=== PATIENT | male | born 1970 | race Caucasian/White ===

== ENCOUNTER 2020-02-04 08:34 | Inpatient (IN) | payer BC ==
[~2020-02-04] VITALS: Ht 177.8 cm; Wt 110.7 kg
--- NOTE | 2020-02-04 00:26 | NUR ---
NURSE NOTES: Completed EKG tracing and showed normal sinus rhythm, cannot rule out anterior infarct. Patient is asymptomatic, alert and oriented x4, breathing even and unlabored, pain is now at a level zero after pain medication administration, vital signs are stable. Notified Dr. Lofton regarding EKG results. Addendum: 02/05/20 at 0047 by Dawn Reyes RN Wrong date, should be 25 - 02/05/2020
--- NOTE | 2020-02-04 08:35 | NUR ---
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 patient reports he had his back against the wall and he felt shortness of breath and lost consciousness and fell down. patient sustained lip/oral trauma and abrasion to his left frontal head, c/o pain 3/10 on lower lip and frontal head. upon arrival patient is alert awake x4 ambulatory, breathing unlabored and even, speaking in full sentences, patient denies having SOB at the moment. patient placed on a hospital gown, placed on a custodian manager.
[2020-02-04 08:45] VITALS: BP 112/71
[2020-02-04] MEDS ORDERED: LOSARTAN POTASS25 MG ORAL (08:55)
[2020-02-04] MEDS ORDERED: AVAPRO300 MG ORAL (08:55)
[2020-02-04] MEDS ORDERED: LYRICA75 M1 ORAL (08:55)
[2020-02-04] MEDS ORDERED: FOLIC ACID1 MG ORAL (08:55)
[2020-02-04] MEDS ORDERED: CELEXA20 MG ORAL (08:55)
[2020-02-04] MEDS ORDERED: CYMBALTA60 MG ORAL (08:55)
[2020-02-04] MEDS ORDERED: ASPIRIN81 MG ORAL (08:55)
[2020-02-04] MEDS ORDERED: PAMELOR25 MG ORAL (08:55)
[2020-02-04] MEDS ORDERED: PANTOPRAZOLE SO40 MG ORAL (08:55)
[2020-02-04] MEDS ORDERED: ATORVASTATIN CA40 MG ORAL (08:55)
--- NOTE | 2020-02-04 09:03 | Emergency Room Report ---
History of Present Illness General Chief Complaint: Syncope Source: Patient, EMS Present Illness HPI Patient is a 49-year-old male presents after syncopal episode. 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 He subsequently fell down striking his face. Does not recall any events or any promontory symptoms. Denies any prior history of heart failure. States he did not eat breakfast this morning. He had prior history of recent negative stress treadmill test. Denies any recent fever. Reports some pain to face and head. Had been squatting before loss of consciousness and had been moving medium weight material prior to stopping. Allergies: Coded Allergies: No Known Allergies (Unverified , 02/04/20) COVID-19 Screening Contact w/high risk pt: No Recent Travel to affected area: No Experienced COVID-19 symptoms?: No COVID-19 Testing performed ONLINE AFFILIATE MARKETING MANAGER: No Patient History Past Medical History: see triage record Past Surgical History: none Pertinent Family History: none Reviewed Nursing Documentation: PMH: Agreed; PSxH: Agreed Nursing Documentation-PMH Past Medical History: No History, Except For Hx Hypertension: Yes Hx Gastrointestinal Problems: Yes - GERD History Of Psychiatric Problem: Yes - Depression Review of Systems All Other Systems: negative except mentioned in HPI Physical Exam Vital Signs Date Time Temp Pulse Resp B/P (MAP) Pulse Ox O2 Delivery O2 Flow Rate FiO2 02/04/20 08:29 97.5 108 18 108/65 (79) 100 Room Air Sp02 EP Interpretation: reviewed, normal General Appearance: normal inspection, alert, obese Head: other - forehead swelling, facial abrasion. ENT: hearing grossly normal, other Neck: normal inspection, full range of motion, supple, no bony tend Respiratory: normal inspection, lungs clear, normal breath sounds, no respiratory distress, no retraction, no wheezing Cardiovascular #1: regular rate, rhythm, no edema Gastrointestinal: normal inspection, normal bowel sounds, non tender, soft, no guarding, no hernia Genitourinary: no CVA tenderness Musculoskeletal: normal inspection, back normal, normal range of motion Neurologic: alert, oriented x3, responsive, speech normal, normal inspection Psychiatric: normal inspection, judgement/insight normal, mood/affect normal Skin: other - abrasions to face Medical Decision Making Diagnostic Impression: Primary Impression: Syncope Additional Impressions: Facial laceration Head contusion ER Course Patient presented for syncopal episode. Differential diagnosis include was not limited to anemia, arrhythmia, myocardial infarction, seizure among others. Because of complexity of patient's case laboratory tests and imaging studies were ordered. Ct head showed no intracranial pathology, CT facial bones showed no evident fracture. Tavo Huff was contacted for plastic surgery consult and repaired facial laceration. He recommended peridex and antibiotics. Ekg showed normal sinus rhythm with no acute st or Twave changes. Facial abrasions were cleansed by tech. Rapid Covid testing was negative. Dr. Nichols was contacted for inpatient management due to panel physician. Labs Test 02/04/20 08:45 White Blood Count 9.2 K/UL (4.8-10.8) Red Blood Count 5.24 M/UL (4.70-6.10) Hemoglobin 16.5 G/DL (14.2-18.0) Hematocrit 48.7 % (42.0-52.0) Mean Corpuscular Volume 93 FL (80-99) Mean Corpuscular Hemoglobin 31.5 PG (27.0-31.0) Mean Corpuscular Hemoglobin Concent 33.9 G/DL (32.0-36.0) Red Cell Distribution Width 10.8 % (11.6-14.8) Platelet Count 280 K/UL (150-450) Mean Platelet Volume 7.4 FL (6.5-10.1) Neutrophils (%) (Auto) 54.5 % (45.0-75.0) Lymphocytes (%) (Auto) 33.5 % (20.0-45.0) Monocytes (%) (Auto) 7.6 % (1.0-10.0) Eosinophils (%) (Auto) 3.0 % (0.0-3.0) Basophils (%) (Auto) 1.4 % (0.0-2.0) Prothrombin Time 10.8 SEC (9.30-11.50) Prothromb Time International Ratio 1.0 (0.9-1.1) Activated Partial Thromboplast Time 26 SEC (23-33) D-Dimer 0.23 mg/L FEU (0.00-0.49) Sodium Level 140 MMOL/L (136-145) Potassium Level 4.0 MMOL/L (3.5-5.1) Chloride Level 103 MMOL/L (98-107) Carbon Dioxide Level 22 MMOL/L (21-32) Anion Gap 15 mmol/L (5-15) Blood Urea Nitrogen 12 mg/dL (7-18) Creatinine 1.7 MG/DL (0.55-1.30) Estimat Glomerular Filtration Rate 42.9 mL/min (>60) Glucose Level 104 MG/DL (74-106) Calcium Level 8.8 MG/DL (8.5-10.1) Total Bilirubin 0.5 MG/DL (0.2-1.0) Aspartate Amino Transf (AST/SGOT) 23 U/L (15-37) Alanine Aminotransferase (ALT/SGPT) 45 U/L (12-78) Alkaline Phosphatase 58 U/L (46-116) Troponin I 0.000 ng/mL (0.000-0.056) C-Reactive Protein, Quantitative 0.7 mg/dL (0.00-0.90) Pro-B-Type Natriuretic Peptide 7 pg/mL (0-125) Total Protein 7.1 G/DL (6.4-8.2) Albumin 3.9 G/DL (3.4-5.0) Globulin 3.2 g/dL Albumin/Globulin Ratio 1.2 (1.0-2.7) Lipase 210 U/L (73-393) EKG Diagnostic Results Rate: normal - 95 Rhythm: NSR ST Segments: no acute changes Last Vital Signs Date Time Temp Pulse Resp B/P (MAP) Pulse Ox O2 Delivery O2 Flow Rate FiO2 02/04/20 08:45 98.0 94 14 112/71 96 Room Air Status: improved Disposition: ADMITTED INPATIENT Condition: Stable Adam Byers MD Feb 04, 2020 09:03
[2020-02-04 09:12] LABS: BASOPHILS % (AUTO) 1.4 % (0.0-2.0); HEMATOCRIT 48.7 % (42.0-52.0); HEMOGLOBIN 16.5 G/DL (14.2-18.0); LYMPHOCYTES % (AUTO) 33.5 % (20.0-45.0); MEAN CORPUSCULAR VOLUME 93 FL (80-99); MONOCYTES % (AUTO) 7.6 % (1.0-10.0); NEUTROPHILS % (AUTO) 54.5 % (45.0-75.0); PLATELET COUNT 280 K/UL (150-450); RED BLOOD COUNT 5.24 M/UL (4.70-6.10); RED CELL DISTRIBUTION WIDTH 10.8 % (11.6-14.8); WHITE BLOOD COUNT 9.2 K/UL (4.8-10.8)
[2020-02-04] MEDS ORDERED: Tetanus/Diptheria/Pertussis IM ONE (09:15)
[2020-02-04 09:19] LABS: ANION GAP 15 mmol/L (5-15); BLOOD UREA NITROGEN 12 mg/dL (7-18); CALCIUM 8.8 MG/DL (8.5-10.1); CARBON DIOXIDE 22 MMOL/L (21-32); CHLORIDE 103 MMOL/L (98-107); CREATININE 1.7 MG/DL (0.55-1.30); SODIUM 140 MMOL/L (136-145)
--- NOTE | 2020-02-04 09:26 | NUR ---
ED Nurse Note: patient taken to CT scan.
[2020-02-04 09:29] LABS: ALANINE AMINOTRANSFERASE 45 U/L (12-78); ALBUMIN 3.9 G/DL (3.4-5.0); ALBUMIN/GLOBULIN RATIO 1.2 (1.0-2.7); ALKALINE PHOSPHATASE 58 U/L (46-116); ASPARTATE AMINO TRANSFERASE 23 U/L (15-37); BILIRUBIN,TOTAL 0.5 MG/DL (0.2-1.0)
--- NOTE | 2020-02-04 09:35 | NUR ---
ED Nurse Note: patient came back from CT
--- NOTE | 2020-02-04 10:19 | Diagnostic Imaging Report ---
Indications: Head trauma Technique: Spiral acquisitions obtained through the brain. Angled axial and coronal 5 x 5 mm slices were reconstructed. Total dose length product 1072 mGycm. CTDI vol(s) 53 mGy. Dose reduction achieved using automated exposure control Comparison: None. Findings: No acute intracranial hemorrhage or edema. No mass effect nor midline shift. Normal valentine-white differentiation. Normal size ventricles and extra-axial CSF spaces. Intact calvarium. Visualized orbits and sinuses are unremarkable. The mastoids are clear. Impression: Negative The CT scanner at [facility] is accredited by the [employer] and the scans are performed using protocols designed to limit radiation exposure to as low as reasonably achievable to attain images of sufficient resolution adequate for diagnostic evaluation.
[2020-02-04] MEDS ORDERED: Lidocaine 2% 20mg/ml/EPI 0.01mg/ml 20ml ONE (11:28)
[2020-02-04] MEDS ORDERED: Lidocaine 1% 10mg/ml/EPI 0.01mg/ml 30ml INJ ONE (11:30)
--- NOTE | 2020-02-04 11:31 | NUR ---
ED Nurse Note: Dr. Refugio Vaughn came for lip laceration repair, gave verbal order for lidocaine 1% with epi. RN verified the bottle of the medication with Dr. Huff.
[2020-02-04] MEDS ORDERED: cefTRIAXone 1 GM in NS 55 ML IVPB ONE (12:00)
[2020-02-04] MEDS ORDERED: Lidocaine HCl 2% Jelly 6ml Tube TOPIC ONE (12:15)
[2020-02-04 12:59] VITALS: BP 120/74
[2020-02-04] MEDS ORDERED: Morphine Sulfate 2mg/ml Inj(IV/IM USE ONLY) IVP ONE (13:00)
--- NOTE | 2020-02-04 13:42 | NUR ---
ED Nurse Note: report given to Brett RN, endorsed all plan of care to Brett RN.
--- NOTE | 2020-02-04 13:42 | Diagnostic Imaging Report ---
Indications: Pain from fall, trauma Technique: Spiral images obtained through the facial bones. No IV contrast utilized. Multiplanar reconstructions were generated.Total dose length product 470 mGycm. CTDIvol(s) 15 mGy. Dose reduction achieved using automated exposure control Comparison: none Findings: No acute fractures. No worrisome sinus air-fluid levels. No dislocations. Nasal septum is midline. The optic globes are intact. There is evidence of prior resection of a portion of the medial maxillary sinus sal bilaterally as well as of the middle turbinates. There is minimal focal mucosal thickening in the right maxillary sinus and within the left sphenoid sinus.. There is also minimal mucosal disease within a few ethmoid air cells. The deep facial soft tissues are unremarkable. The visualized upper aerodigestive tract is unremarkable. The dentition is intact. There is periosteal thickening of the left side of the mandible, predominantly on the inner table but also the outer table which is presumably developmental in nature. 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
--- NOTE | 2020-02-04 13:46 | Consultation ---
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 patient reports he had his back against the wall and he felt shortness of breath and lost consciousness and fell down. Recent stress test nuclear 2 months ago with PCP in [place] was negative Allergies: Coded Allergies: No Known Allergies (Unverified , 02/04/20) Medication History Scheduled Aspirin* (Aspirin*), 70 MG ORAL DAILY, (Reported) Atorvastatin Calcium* (Atorvastatin Calcium*), 40 MG ORAL BEDTIME, (Reported) Citalopram Hydrobromide* (Celexa*), 20 MG ORAL DAILY, (Reported) Duloxetine Hcl* (Cymbalta*), 60 MG ORAL DAILY, (Reported) Folic Acid* (Folic Acid*), 1 MG ORAL DAILY, (Reported) Irbesartan* (Avapro*), 300 MG ORAL DAILY, (Reported) Losartan Potassium* (Losartan Potassium*), 25 MG ORAL DAILY, (Reported) Nortriptyline Hcl* (Pamelor*), 25 MG ORAL DAILY, (Reported) Pantoprazole* (Pantoprazole*), 40 MG ORAL DAILY, (Reported) Pregabalin* (Lyrica*), 100 MG ORAL THREE TIMES A DAY, (Reported) Patient History Healthcare decision maker Resuscitation status Advanced Directive on File No Review of Systems All Other Systems: negative except mentioned in HPI Physical Exam General Appearance: WD/WN, no apparent distress, alert Lines, tubes and drains: peripheral HEENT: normocephalic, atraumatic Neck: non-tender, normal alignment Respiratory/Chest: chest wall non-tender, lungs clear Cardiovascular/Chest: normal peripheral pulses, normal rate, regular rhythm Abdomen: normal bowel sounds, non tender, soft Neurologic: alert, oriented x 3 Last 24 Hour Vital Signs Date Time Temp Pulse Resp B/P (MAP) Pulse Ox O2 Delivery O2 Flow Rate FiO2 02/04/20 13:43 98.0 02/04/20 12:59 98.0 02/04/20 12:59 98.0 89 17 120/74 95 Room Air 02/04/20 08:45 98.0 94 14 112/71 96 Room Air 02/04/20 08:29 97.5 108 18 108/65 (79) 100 Room Air Laboratory Tests Test 7/6/20 08:45 White Blood Count 9.2 K/UL (4.8-10.8) Red Blood Count 5.24 M/UL (4.70-6.10) Hemoglobin 16.5 G/DL (14.2-18.0) Hematocrit 48.7 % (42.0-52.0) Mean Corpuscular Volume 93 FL (80-99) Mean Corpuscular Hemoglobin 31.5 PG (27.0-31.0) H Mean Corpuscular Hemoglobin Concent 33.9 G/DL (32.0-36.0) Red Cell Distribution Width 10.8 % (11.6-14.8) L Platelet Count 280 K/UL (150-450) Mean Platelet Volume 7.4 FL (6.5-10.1) Neutrophils (%) (Auto) 54.5 % (45.0-75.0) Lymphocytes (%) (Auto) 33.5 % (20.0-45.0) Monocytes (%) (Auto) 7.6 % (1.0-10.0) Eosinophils (%) (Auto) 3.0 % (0.0-3.0) Basophils (%) (Auto) 1.4 % (0.0-2.0) Prothrombin Time 10.8 SEC (9.30-11.50) Prothromb Time International Ratio 1.0 (0.9-1.1) Activated Partial Thromboplast Time 26 SEC (23-33) D-Dimer 0.23 mg/L FEU (0.00-0.49) Sodium Level 140 MMOL/L (136-145) Potassium Level 4.0 MMOL/L (3.5-5.1) Chloride Level 103 MMOL/L (98-107) Carbon Dioxide Level 22 MMOL/L (21-32) Anion Gap 15 mmol/L (5-15) Blood Urea Nitrogen 12 mg/dL (7-18) Creatinine 1.7 MG/DL (0.55-1.30) H Estimat Glomerular Filtration Rate 42.9 mL/min (>60) Glucose Level 104 MG/DL (74-106) Calcium Level 8.8 MG/DL (8.5-10.1) Total Bilirubin 0.5 MG/DL (0.2-1.0) Aspartate Amino Transf (AST/SGOT) 23 U/L (15-37) Alanine Aminotransferase (ALT/SGPT) 45 U/L (12-78) Alkaline Phosphatase 58 U/L (46-116) Troponin I 0.000 ng/mL (0.000-0.056) C-Reactive Protein, Quantitative 0.7 mg/dL (0.00-0.90) Pro-B-Type Natriuretic Peptide 7 pg/mL (0-125) Total Protein 7.1 G/DL (6.4-8.2) Albumin 3.9 G/DL (3.4-5.0) Globulin 3.2 g/dL Albumin/Globulin Ratio 1.2 (1.0-2.7) Lipase 210 U/L (73-393) Microbiology Date/Time Source Procedure Growth Status 02/04/20 09:00 Nasopharynx SARS-CoV-2 RdRp Gene Assay - Final Complete Height (Feet): 5 Height (Inches): 10.00 Weight (Pounds): 235 Assessment/Plan Diagnosis [place]: #DAVID #syncope #s/p fall #Facial laceration - IVF - monitor renal function - urine lytes - renal us - cardiology eval - monitor BMP, mag and phos daily - avoid nephrotoxins - strict I&Os - monitor weights Keisha Nichols M.D. Feb 04, 2020 13:46
--- NOTE | 2020-02-04 14:00 | NUR ---
ED Nurse Note: patient transferred to on ACLS protocol with all of his belongings, report given to Ani RN, endorsed all plan of to Ani RN. patient in stable condition, a/o x4 ambulatory steady gait.
--- NOTE | 2020-02-04 14:00 | NUR ---
NURSE NOTES: Patient received from Philly MELÉNDEZ RN. Patient stable AOx4 with complaints of 6/10 to jaw. VSS. No s/sx of distress. RR even and unlabored on RA. Placed on fall precautions. Laceration to head noted. Due to pain, could not fully assess inside of mouth. SR on wire brusher. Side rails upx2, call light within reach, bed llow and locked, bed alarm on. Will continue to monitor.
[2020-02-04] MEDS ORDERED: HYDROcodone/Acetamin 10/325 tab ORAL PRN (14:30)
[2020-02-04] MEDS: HYDROcodone/Acetamin 5/325 tab ORAL PRN ×2 (14:44→23:16)
--- NOTE | 2020-02-04 16:05 | Diagnostic Imaging Report ---
Indication: Shortness of breath Technique: One view of the chest Comparison: none Findings: Lungs and pleural spaces are clear. Heart size is normal. Hardware is seen in the lower cervical spine Impression: No acute process
[2020-02-04 16:18] VITALS: BP 123/84
--- NOTE | 2020-02-04 17:44 | Consultation ---
History of Present Illness General Chief Complaint: Syncope Present Illness Allergies: Coded Allergies: No Known Allergies (Unverified , 02/04/20) Medication History Scheduled Aspirin* (Aspirin*), 70 MG ORAL DAILY, (Reported) Atorvastatin Calcium* (Atorvastatin Calcium*), 40 MG ORAL BEDTIME, (Reported) Citalopram Hydrobromide* (Celexa*), 20 MG ORAL DAILY, (Reported) Duloxetine Hcl* (Cymbalta*), 60 MG ORAL DAILY, (Reported) Folic Acid* (Folic Acid*), 1 MG ORAL DAILY, (Reported) Irbesartan* (Avapro*), 300 MG ORAL DAILY, (Reported) Losartan Potassium* (Losartan Potassium*), 25 MG ORAL DAILY, (Reported) Nortriptyline Hcl* (Pamelor*), 25 MG ORAL DAILY, (Reported) Pantoprazole* (Pantoprazole*), 40 MG ORAL DAILY, (Reported) Pregabalin* (Lyrica*), 100 MG ORAL THREE TIMES A DAY, (Reported) Patient History Healthcare decision maker Resuscitation status Advanced Directive on File No Physical Exam Last 24 Hour Vital Signs Date Time Temp Pulse Resp B/P (MAP) Pulse Ox O2 Delivery O2 Flow Rate FiO2 02/04/20 16:18 98.4 85 16 123/84 (97) 97 02/04/20 16:00 78 02/04/20 15:58 Room Air 02/04/20 14:00 98.0 89 17 120/74 95 Room Air 02/04/20 13:43 98.0 02/04/20 12:59 98.0 02/04/20 12:59 98.0 89 17 120/74 95 Room Air 02/04/20 08:45 98.0 94 14 112/71 96 Room Air 02/04/20 08:29 97.5 108 18 108/65 (79) 100 Room Air Laboratory Tests Test 02/04/20 08:45 White Blood Count 9.2 K/UL (4.8-10.8) Red Blood Count 5.24 M/UL (4.70-6.10) Hemoglobin 16.5 G/DL (14.2-18.0) Hematocrit 48.7 % (42.0-52.0) Mean Corpuscular Volume 93 FL (80-99) Mean Corpuscular Hemoglobin 31.5 PG (27.0-31.0) H Mean Corpuscular Hemoglobin Concent 33.9 G/DL (32.0-36.0) Red Cell Distribution Width 10.8 % (11.6-14.8) L Platelet Count 280 K/UL (150-450) Mean Platelet Volume 7.4 FL (6.5-10.1) Neutrophils (%) (Auto) 54.5 % (45.0-75.0) Lymphocytes (%) (Auto) 33.5 % (20.0-45.0) Monocytes (%) (Auto) 7.6 % (1.0-10.0) Eosinophils (%) (Auto) 3.0 % (0.0-3.0) Basophils (%) (Auto) 1.4 % (0.0-2.0) Prothrombin Time 10.8 SEC (9.30-11.50) Prothromb Time International Ratio 1.0 (0.9-1.1) Activated Partial Thromboplast Time 26 SEC (23-33) D-Dimer 0.23 mg/L FEU (0.00-0.49) Sodium Level 140 MMOL/L (136-145) Potassium Level 4.0 MMOL/L (3.5-5.1) Chloride Level 103 MMOL/L (98-107) Carbon Dioxide Level 22 MMOL/L (21-32) Anion Gap 15 mmol/L (5-15) Blood Urea Nitrogen 12 mg/dL (7-18) Creatinine 1.7 MG/DL (0.55-1.30) H Estimat Glomerular Filtration Rate 42.9 mL/min (>60) Glucose Level 104 MG/DL (74-106) Calcium Level 8.8 MG/DL (8.5-10.1) Total Bilirubin 0.5 MG/DL (0.2-1.0) Aspartate Amino Transf (AST/SGOT) 23 U/L (15-37) Alanine Aminotransferase (ALT/SGPT) 45 U/L (12-78) Alkaline Phosphatase 58 U/L (46-116) Troponin I 0.000 ng/mL (0.000-0.056) C-Reactive Protein, Quantitative 0.7 mg/dL (0.00-0.90) Pro-B-Type Natriuretic Peptide 7 pg/mL (0-125) Total Protein 7.1 G/DL (6.4-8.2) Albumin 3.9 G/DL (3.4-5.0) Globulin 3.2 g/dL Albumin/Globulin Ratio 1.2 (1.0-2.7) Lipase 210 U/L (73-393) Microbiology Date/Time Source Procedure Growth Status 02/04/20 09:00 Nasopharynx SARS-CoV-2 RdRp Gene Assay - Final Complete Height (Feet): 5 Height (Inches): 10.00 Weight (Pounds): 244 Medications Current Medications Medications (Trade) Dose Ordered Sig/Delmis Route PRN Reason Start Time Stop Time Status Last Admin Dose Admin Acetaminophen (Tylenol) 650 mg Q6H PRN ORAL For mild pain 02/04/20 14:30 03/05/20 14:29 Acetaminophen/ Hydrocodone Bitart (Solomon 10/325) 1 tab Q6H PRN ORAL For Severe Pain 02/04/20 14:30 02/11/20 14:29 Acetaminophen/ Hydrocodone Bitart (Solomon 5/325) 1 tab Q6H PRN ORAL For Moderate Pain 02/04/20 14:30 02/11/20 14:29 02/04/20 14:44 Alex Lofton MD Feb 04, 2020 17:44
--- NOTE | 2020-02-04 18:00 | Diagnostic Imaging Report ---
Indication: Syncope Technique: Grayscale and duplex images of the extracranial carotid artery Comparison: none Findings: Per technologist, exam technically difficult, due to the depth of the vessels. Bilaterally, grayscale and duplex images demonstrate atherosclerotic plaquing resulting in less than 50% diameter narrowing. Normal Doppler flow velocities and waveforms. Patent bilateral vertebral arteries, antegrade flow. Impression: Less than 50% diameter stenosis bilaterally
[2020-02-04] MEDS ORDERED: HydrALAZINE 25mg tab ORAL PRN (18:30)
--- NOTE | 2020-02-04 19:15 | NUR ---
HAND-OFF: Report given to Dawn GARCÍA. Patient stable. Plan of care endorsed.
--- NOTE | 2020-02-04 19:15 | NUR ---
NURSE NOTES: Hand-off report received by RICKY Desai. Patient in stable condition, no acute signs of distress noted. Patient on room air, breathing is unlabored, lungs clear to auscultation. Alert and oriented x4. Call light within reach, bed alarm activated, bed in lowest and locked position, court recording monitor in place.
[2020-02-04 20:00] VITALS: BP 117/84
[2020-02-04] MEDS: Lyrica 50mg cap ORAL SCH (20:43)
[2020-02-04] MEDS ORDERED: DULoxetine 30mg cap ORAL SCH (21:00)
[2020-02-04] MEDS ORDERED: Atorvastatin 20mg tab ORAL SCH (21:00)
[2020-02-04] MEDS ORDERED: Nortriptyline 25mg cap ORAL SCH (21:00)
--- NOTE | 2020-02-04 22:31 | History & Physical ---
Mitchell Finn MD Feb 04, 2020 22:31
--- NOTE | 2020-02-04 22:53 | Consultation ---
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 patient reports he had his back against the wall and he felt shortness of breath and lost consciousness and fell down. Recent stress test nuclear 2 months ago with PCP in [place] was negative Allergies: Coded Allergies: No Known Allergies (Unverified , 02/04/20) Medication History Scheduled Aspirin* (Aspirin*), 70 MG ORAL DAILY, (Reported) Atorvastatin Calcium* (Atorvastatin Calcium*), 40 MG ORAL BEDTIME, (Reported) Citalopram Hydrobromide* (Celexa*), 20 MG ORAL DAILY, (Reported) Duloxetine Hcl* (Cymbalta*), 60 MG ORAL DAILY, (Reported) Folic Acid* (Folic Acid*), 1 MG ORAL DAILY, (Reported) Irbesartan* (Avapro*), 300 MG ORAL DAILY, (Reported) Losartan Potassium* (Losartan Potassium*), 25 MG ORAL DAILY, (Reported) Nortriptyline Hcl* (Pamelor*), 25 MG ORAL DAILY, (Reported) Pantoprazole* (Pantoprazole*), 40 MG ORAL DAILY, (Reported) Pregabalin* (Lyrica*), 100 MG ORAL THREE TIMES A DAY, (Reported) Patient History Healthcare decision maker Resuscitation status Advanced Directive on File No Review of Systems Constitutional: Reports: no symptoms Eye: Reports: no symptoms ENT: Reports: no symptoms Respiratory: Reports: no symptoms Cardiovascular: Reports: no symptoms Gastrointestinal: Reports: no symptoms Genitourinary: Reports: no symptoms Musculoskeletal: Reports: no symptoms Skin: Reports: no symptoms Psychiatric: Reports: no symptoms Neurological: Reports: syncope Endocrine: Reports: no symptoms Hematologic/Lymphatic: Reports: no symptoms Physical Exam General Appearance: no apparent distress, alert Lines, tubes and drains: peripheral HEENT: normocephalic, atraumatic Neck: non-tender, normal alignment, supple, normal inspection Respiratory/Chest: chest wall non-tender, lungs clear, normal breath sounds, no respiratory distress, no accessory muscle use Cardiovascular/Chest: normal peripheral pulses, normal rate, regular rhythm Abdomen: normal bowel sounds, non tender, soft, no organomegaly, no mass Extremities: normal range of motion, non-tender, normal inspection, no calf tenderness Last 24 Hour Vital Signs Date Time Temp Pulse Resp B/P (MAP) Pulse Ox O2 Delivery O2 Flow Rate FiO2 02/04/20 20:00 97.9 79 18 117/84 (95) 94 02/04/20 20:00 79 02/04/20 16:18 98.4 85 16 123/84 (97) 97 02/04/20 16:00 78 02/04/20 15:58 Room Air 02/04/20 14:00 98.0 89 17 120/74 95 Room Air 02/04/20 13:43 98.0 02/04/20 12:59 98.0 02/04/20 12:59 98.0 89 17 120/74 95 Room Air 02/04/20 08:45 98.0 94 14 112/71 96 Room Air 02/04/20 08:29 97.5 108 18 108/65 (79) 100 Room Air Laboratory Tests Test 02/04/20 08:45 White Blood Count 9.2 K/UL (4.8-10.8) Red Blood Count 5.24 M/UL (4.70-6.10) Hemoglobin 16.5 G/DL (14.2-18.0) Hematocrit 48.7 % (42.0-52.0) Mean Corpuscular Volume 93 FL (80-99) Mean Corpuscular Hemoglobin 31.5 PG (27.0-31.0) H Mean Corpuscular Hemoglobin Concent 33.9 G/DL (32.0-36.0) Red Cell Distribution Width 10.8 % (11.6-14.8) L Platelet Count 280 K/UL (150-450) Mean Platelet Volume 7.4 FL (6.5-10.1) Neutrophils (%) (Auto) 54.5 % (45.0-75.0) Lymphocytes (%) (Auto) 33.5 % (20.0-45.0) Monocytes (%) (Auto) 7.6 % (1.0-10.0) Eosinophils (%) (Auto) 3.0 % (0.0-3.0) Basophils (%) (Auto) 1.4 % (0.0-2.0) Prothrombin Time 10.8 SEC (9.30-11.50) Prothromb Time International Ratio 1.0 (0.9-1.1) Activated Partial Thromboplast Time 26 SEC (23-33) D-Dimer 0.23 mg/L FEU (0.00-0.49) Sodium Level 140 MMOL/L (136-145) Potassium Level 4.0 MMOL/L (3.5-5.1) Chloride Level 103 MMOL/L (98-107) Carbon Dioxide Level 22 MMOL/L (21-32) Anion Gap 15 mmol/L (5-15) Blood Urea Nitrogen 12 mg/dL (7-18) Creatinine 1.7 MG/DL (0.55-1.30) H Estimat Glomerular Filtration Rate 42.9 mL/min (>60) Glucose Level 104 MG/DL (74-106) Calcium Level 8.8 MG/DL (8.5-10.1) Total Bilirubin 0.5 MG/DL (0.2-1.0) Aspartate Amino Transf (AST/SGOT) 23 U/L (15-37) Alanine Aminotransferase (ALT/SGPT) 45 U/L (12-78) Alkaline Phosphatase 58 U/L (46-116) Troponin I 0.000 ng/mL (0.000-0.056) C-Reactive Protein, Quantitative 0.7 mg/dL (0.00-0.90) Pro-B-Type Natriuretic Peptide 7 pg/mL (0-125) Total Protein 7.1 G/DL (6.4-8.2) Albumin 3.9 G/DL (3.4-5.0) Globulin 3.2 g/dL Albumin/Globulin Ratio 1.2 (1.0-2.7) Lipase 210 U/L (73-393) Microbiology Date/Time Source Procedure Growth Status 02/04/20 09:00 Nasopharynx SARS-CoV-2 RdRp Gene Assay - Final Complete Height (Feet): 5 Height (Inches): 10.00 Weight (Pounds): 244 Medications Current Medications Medications (Trade) Dose Ordered Sig/Delmis Route PRN Reason Start Time Stop Time Status Last Admin Dose Admin Acetaminophen (Tylenol) 650 mg Q6H PRN ORAL For mild pain 02/04/20 14:30 03/05/20 14:29 Acetaminophen/ Hydrocodone Bitart ([place] 10/325) 1 tab Q6H PRN ORAL For Severe Pain 02/04/20 14:30 02/11/20 14:29 Acetaminophen/ Hydrocodone Bitart ([place] 5/325) 1 tab Q6H PRN ORAL For Moderate Pain 02/04/20 14:30 02/11/20 14:29 02/04/20 14:44 Atorvastatin Calcium (Lipitor) 40 mg BEDTIME ORAL 02/04/20 21:00 05/04/20 20:59 02/04/20 20:41 Citalopram Hydrobromide (CeleXA) 20 mg DAILY ORAL 02/05/20 09:00 03/06/20 08:59 Duloxetine HCl (Cymbalta) 60 mg DAILY ORAL 02/04/20 21:00 05/04/20 20:59 02/04/20 20:42 Folic Acid (Folate) 1 mg DAILY ORAL 02/04/20 21:00 03/05/20 20:59 02/04/20 20:48 Hydralazine HCl (Apresoline) 25 mg Q6H PRN ORAL SBP > 150 02/04/20 18:30 05/04/20 18:29 Nortriptyline HCl (Pamelor) 25 mg DAILY ORAL 02/04/20 21:00 03/05/20 20:59 02/04/20 20:41 Pantoprazole (Protonix) 40 mg DAILY ORAL 02/04/20 21:00 03/05/20 20:59 02/04/20 20:41 Pregabalin (Lyrica) 100 mg THREE TIMES A DAY ORAL 02/04/20 21:00 03/20/20 20:59 02/04/20 20:43 Assessment/Plan Status: stable, progressing Assessment/Plan: Assessment Syncope Head trauma Depression/anxiety Hyperlipidemia Plan: Continue lipitor Recent ischemia evaluation negative Carotid US with no flow limiting stenosis CT head negative Echocardiogram pending to evaluate for valvular obstruction Monitor telemetry for arrhythmias given on cymbalta, lyrica, pamelor, celexa - monitor QT interval D/c with ziopatch Monitor orthostatics IV fluids Hold sedatives Physical therapy assessment Alex Lofton MD Feb 04, 2020 22:53
[2020-02-05] VITALS: BP 115/61
--- NOTE | 2020-02-05 00:26 | NUR ---
NURSE NOTES:Completed EKG tracing and showed normal sinus rhythm, cannot rule out anterior infarct. Patient is asymptomatic, alert and oriented x4, breathing even and unlabored, pain is now at a level zero after pain medication administration, vital signs are stable. Notified Dr. Lofton regarding EKG results.
[2020-02-05 00:29] LABS: CHOLESTEROL 151 MG/DL (< 200); HDL CHOLESTEROL 41 MG/DL (40-60); TRIGLYCERIDES 181 MG/DL (30-150)
[2020-02-05 04:00] VITALS: BP 119/68
[2020-02-05 07:09] LABS: BASOPHILS % (AUTO) 1.5 % (0.0-2.0); EOSINOPHILS % (AUTO) 3.1 % (0.0-3.0); HEMATOCRIT 46.9 % (42.0-52.0); HEMOGLOBIN 15.6 G/DL (14.2-18.0); LYMPHOCYTES % (AUTO) 35.2 % (20.0-45.0); MEAN CORPUSCULAR VOLUME 94 FL (80-99); MONOCYTES % (AUTO) 6.9 % (1.0-10.0); NEUTROPHILS % (AUTO) 53.4 % (45.0-75.0); PLATELET COUNT 249 K/UL (150-450); RED CELL DISTRIBUTION WIDTH 11.3 % (11.6-14.8); WHITE BLOOD COUNT 9.3 K/UL (4.8-10.8)
--- NOTE | 2020-02-05 07:13 | NUR ---
HAND-OFF: Report given to RICKY Desai. Plan of care endorsed. Patient in stable condition.
[2020-02-05 07:30] LABS: PHOSPHORUS 3.4 MG/DL (2.5-4.9)
--- NOTE | 2020-02-05 07:30 | NUR ---
NURSE NOTES: Patient stable AOx4 with no complaints at this time. Eating breakfast. RR even and unlabored on RA. Side rails up x2, call light within reach, bed low and locked, bed alarm on. Patient reminded to call RN if he needs to ambulate since he had a syncopal episode. Patient verbalized understanding. Will continue to monitor.
[2020-02-05 07:34] LABS: CHOLESTEROL 149 MG/DL (< 200); HDL CHOLESTEROL 40 MG/DL (40-60); TRIGLYCERIDES 187 MG/DL (30-150)
[2020-02-05 08:12] VITALS: BP 126/80
[2020-02-05] MEDS: Lyrica 50mg cap ORAL SCH ×2 (08:56→13:15)
[2020-02-05] MEDS ORDERED: Citalopram Hydrobromide 10mg Tab ORAL SCH (09:00)
--- NOTE | 2020-02-05 11:44 | Consultation ---
DATE OF CONSULTATION: 02/05/2020 PULMONARY CONSULTATION CONSULTING PHYSICIAN: Ga Zimmerman MD REQUESTING PHYSICIAN: Keisha Nichols MD REASON FOR CONSULTATION: Shortness of breath. HISTORY OF PRESENT ILLNESS: This is a 49-year-old male, who passed out yesterday a syncopal episode. He was working at [employer] site and felt tired. He fell and hit his lower part of the jaw, suffering a laceration to the inner side of his lip. He denies any chest pain. The patient reports a history of shortness of breath, which has been occurring for the last several months. He reports that he has had a negative cardiac workup recently. He states that he has sleep apnea, uses CPAP machine at home. PAST MEDICAL HISTORY: Notable for GERD, depression, hypertension, [place], on CPAP. HOME MEDICATIONS: Reviewed and reconciled in the chart. REVIEW OF SYSTEMS: Denies any headaches, hematemesis, melena, hematochezia, night sweats or weight loss. PHYSICAL EXAMINATION: VITAL SIGNS: Blood pressure at this time is 120/80, heart rate is 74, respirations are 16, O2 saturation is 97% on room air. GENERAL: Reveals a 49-year-old male. HEENT: Unremarkable. He has a repaired laceration of his inner lower lip. CHEST: Clear breath sounds bilaterally with normal heart sounds. ABDOMEN: Soft. EXTREMITIES: There is no edema. LABORATORY DATA: Lab testing shows normal CBC and BMP. Coags are normal. Imaging studies are essentially negative for any major fractures. X-ray chest shows clear lung ballard bilaterally. IMPRESSION: 1. Syncope. 2. [place], on CPAP. 3. Shortness of breath. DISCUSSION: Cardiac workup was initiated. Currently, respiratory status stable. The patient will benefit from outpatient PFTs to determine if he has asthma. We will provide information for outpatient evaluation. We will follow as test man. Ga Zimmerman M.D. DR: IZZY JOB#: [id number] CC:
--- NOTE | 2020-02-05 11:59 | NUR ---
*-* INSURANCE *-* ALL AVAILABLE CLINICALS HAVE BEEN FAXED TO: LETHA PAYTON AUTH#[id number] [phone] F:[phone]
[2020-02-05 12:25] VITALS: BP 110/71
--- NOTE | 2020-02-05 15:36 | Discharge Instructions ---
Discharge Instructions Discharge Instructions Resume Normal Activity?: Yes Activity: resume normal activities Follow Up Orders see primary doctor to set up Ziopatch monitor For Congestive Heart Failure Reminder Report to your physician any weight gain of 5 pounds or more in one week. Mitchell Finn MD Feb 05, 2020 15:36
--- NOTE | 2020-02-05 15:38 | Discharge Summary ---
Discharge Summary Hospital Course Date of Admission Feb 04, 2020 at 12:13 Date of Discharge Admitting Diagnosis syncope, facial laceration HPI Wero Terrazas is a 49 year old male who was admitted on Feb 04, 2020 at 12 :13 for Syncope, Facial Laceration Discharge Discharge Vital Signs Last Vital Signs Date Time Temp Pulse Resp B/P (MAP) Pulse Ox O2 Delivery O2 Flow Rate FiO2 02/05/20 13:35 89 02/05/20 12:25 97.9 20 110/71 (84) 98 02/05/20 09:00 Room Air Discharge Disposition Patient was discharged to Discharge Instructions Discharge Instructions Activity: resume normal activities Mitchell Finn MD Feb 05, 2020 15:38
--- NOTE | 2020-02-05 16:17 | NUR ---
CASE MANAGEMENT:REVIEW 49 YR OLD MALE ANTIONETTE CC; SYNCOPE SI: SYNCOPE. FACIAL LACERATION `97.6 108 18 108/65 100% ON RA IS: 1L NS BOLUS IV ROCEPHIN TYLENOL PO CT HEAD COVID 19 CT FACIAL BONES : TO TELEMETRY PLAN: NEURO CHECKS Addendum: 02/05/20 at 1625 by LOKI RIVAS LVN LVN 02/05/20 DISCHARGED
--- NOTE | 2020-02-05 16:40 | Cardiology Progress Note ---
Assessment/Plan Status: stable Assessment/Plan Assessment: Syncope Plan: No cause of patients syncopal event, work up negative Recommend d/c with ziopatch Fluids ad christy no restrictions ok to d/c home Subjective Cardiovascular: Reports: no symptoms Respiratory: Reports: no symptoms Gastrointestinal/Abdominal: Reports: no symptoms Genitourinary: Reports: no symptoms Subjective no acute events, no arrhythmias on telemetry, carotid US negative, Echo with no obstruction Objective Last 24 Hour Vital Signs Date Time Temp Pulse Resp B/P (MAP) Pulse Ox O2 Delivery O2 Flow Rate FiO2 02/05/20 13:35 89 02/05/20 12:25 97.9 81 20 110/71 (84) 98 02/05/20 09:00 Room Air 02/05/20 08:12 98.1 76 17 126/80 (95) 97 02/05/20 08:00 93 02/05/20 05:32 Room Air 02/05/20 04:00 97.5 85 18 119/68 (85) 97 02/05/20 04:00 81 02/05/20 00:00 85 02/05/20 00:00 97.9 85 19 115/61 (79) 96 02/04/20 20:00 97.9 79 18 117/84 (95) 94 02/04/20 20:00 79 General Appearance: no apparent distress, alert EENT: PERRL/EOMI, normal ENT inspection, TMs normal, pharynx normal Neck: normal alignment, supple, normal inspection, no JVD Rhythm: NSR Cardiovascular: normal rate, regular rhythm Respiratory/Chest: chest wall non-tender, lungs clear, normal breath sounds, no respiratory distress, no accessory muscle use Abdomen: normal bowel sounds, non tender, no organomegaly, no mass Extremities: normal range of motion, non-tender, normal inspection, no calf tenderness, no swelling 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, no motor/sensory deficits Intake and Output 02/04/20 02/05/20 19:00 07:00 Intake Total 300 ml Balance 300 ml Intake Oral 300 ml # Voids 1 3 Laboratory Tests Test 02/04/20 23:30 02/05/20 05:40 Troponin I 0.000 ng/mL (0.000-0.056) 0.000 ng/mL (0.000-0.056) Triglycerides Level 181 MG/DL (30-150) H 187 MG/DL (30-150) H Cholesterol Level 151 MG/DL (< 200) 149 MG/DL (< 200) LDL Cholesterol 82 mg/dL (<100) 81 mg/dL (<100) HDL Cholesterol 41 MG/DL (40-60) 40 MG/DL (40-60) Cholesterol/HDL Ratio 3.7 (3.3-4.4) 3.7 (3.3-4.4) Thyroid Stimulating Hormone (TSH) 1.395 uiU/mL (0.358-3.740) 1.640 uiU/mL (0.358-3.740) White Blood Count 9.3 K/UL (4.8-10.8) Red Blood Count 5.00 M/UL (4.70-6.10) Hemoglobin 15.6 G/DL (14.2-18.0) Hematocrit 46.9 % (42.0-52.0) Mean Corpuscular Volume 94 FL (80-99) Mean Corpuscular Hemoglobin 31.3 PG (27.0-31.0) H Mean Corpuscular Hemoglobin Concent 33.3 G/DL (32.0-36.0) Red Cell Distribution Width 11.3 % (11.6-14.8) L Platelet Count 249 K/UL (150-450) Mean Platelet Volume 7.4 FL (6.5-10.1) Neutrophils (%) (Auto) 53.4 % (45.0-75.0) Lymphocytes (%) (Auto) 35.2 % (20.0-45.0) Monocytes (%) (Auto) 6.9 % (1.0-10.0) Eosinophils (%) (Auto) 3.1 % (0.0-3.0) H Basophils (%) (Auto) 1.5 % (0.0-2.0) Phosphorus Level 3.4 MG/DL (2.5-4.9) Magnesium Level 2.1 MG/DL (1.8-2.4) Pro-B-Type Natriuretic Peptide 15 pg/mL (0-125) Microbiology Date/Time Source Procedure Growth Status 02/04/20 09:00 Nasopharynx SARS-CoV-2 RdRp Gene Assay - Final Complete FilsoAlex quintanilla MD Feb 05, 2020 16:40
--- NOTE | 2020-02-05 16:45 | Diagnostic Imaging Report ---
Indication: Abnormal renal function Technique: Grayscale and duplex images of the kidneys, retroperitoneum, and bladder were obtained. Comparison: none Findings: Right kidney measures 10.9 cm in length. Left kidney measures 11.7 cm in length. Both kidneys demonstrate normal echogenicity. No hydronephrosis. No focal abnormality. Normal inferior vena cava. Bladder is normal. Incidentally noted is increased hepatic echogenicity Impression: Negative for hydronephrosis. Normal size kidneys Increased hepatic echogenicity, likely fatty change.
--- NOTE | 2020-02-05 17:00 | NUR ---
NURSE NOTES: Patient discharged. Stable AOx4 with no s/sx of distress. All belongings with patient. Discharge paperwork given. Patient has no questions and has already scheduled an appointment with primary care physician. 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 Patient escorted to Addendum: 02/05/20 at 1808 by CHLOÉ JUÁREZ RN private vehicle.
[2020-02-05] MEDS ORDERED: DULoxetine 30mg cap ORAL SCH (21:00)
[2020-02-05] MEDS ORDERED: Nortriptyline 25mg cap ORAL SCH (21:00)
--- NOTE | 2020-02-06 10:37 | NUR ---
*-* INSURANCE *-* DISCHARGE SUMMARY HAS BEEN FAXED TO: LETHA PAYTON AUTH#[id number] P:[phone] F:[phone]
--- NOTE | 2020-02-06 19:08 | Nephrology Progress Note ---
Assessment/Plan Plan #DAVID #syncope #s/p fall #Facial laceration - IVF - monitor renal function - urine lytes - renal us - cardiology eval - monitor BMP, mag and phos daily - avoid nephrotoxins - strict I&Os - monitor weights Subjective ROS Limited/Unobtainable: No Constitutional: Reports: weakness HEENT: Denies: no symptoms, eye pain, blurred vision, tearing, double vision, ear pain, ear discharge, nose pain, nose congestion, throat pain, throat swelling, mouth pain, mouth swelling, other Genitourinary: Denies: no symptoms, burning, discharge, frequency, flank pain, hematuria, incontinence, pain, urgency, other Neurologic/Psychiatric: Denies: no symptoms, anxiety, depressed, emotional problems, headache, numbness, paresthesia, pre-existing deficit, seizure, tingling, tremors, weakness, other Subjective evaluated by cardiology no chest pain no SOB Objective Objective Height (Feet): 5 Height (Inches): 10.00 Weight (Pounds): 244 General Appearance: WD/WN, no apparent distress EENT: PERRL/EOMI, normal ENT inspection Neck: non-tender, normal alignment, supple Cardiovascular: normal peripheral pulses, normal rate Respiratory/Chest: chest wall non-tender, lungs clear, normal breath sounds Abdomen: normal bowel sounds, non tender, soft, no organomegaly, no mass, abnormal bowel sounds Extremities: normal range of motion, non-tender, normal inspection Neurologic: alert, oriented x 3, responsive, normal mood/affect Keisha Nichols M.D. Feb 06, 2020 19:08
== END 2020-02-05 16:55 | disposition home or self-care (01) | DRG 158 ==
LOC: EDBD 08:34 → EMR 09:24 → 2E 12:13 → EDBEDREQ 12:57 → 2E 17:02
DX: S01.511A Laceration without foreign body of lip, initial encounter (principal); N17.9 Acute kidney failure, unspecified; R55 Syncope and collapse; F41.8 Other specified anxiety disorders; E78.5 Hyperlipidemia, unspecified; G47.33 Obstructive sleep apnea (adult) (pediatric); K21.9 Gastro-esophageal reflux disease without esophagitis; W19.XXXA Unspecified fall, initial encounter; Y93.H3 Activity, building and construction; Y92.69 Other specified industrial and construction area as the place of occurrence of the external cause; E66.9 Obesity, unspecified; Z68.35 Body mass index [BMI] 35.0-35.9, adult; R06.02 Shortness of breath; Z79.82 Long term (current) use of aspirin
CPT/HCPCS: 36415; 70450; 70486; 71045; 76770; 80053; 80061; 83690; 83735; 83880; 84100; 84443; 84484; 85025; 85379; 85610; 85730; 86140; 90471; 90715; 93005; 93306; 93880; 96361; 96365; 96375; 99285; J7030; U0002